=== PATIENT | female | born 1990 | race African-American/Black ===

== ENCOUNTER → 2018-03-16 | Outpatient (CLI) | payer OTHER | LOC: M OUTALCOH 07:59 | DX: F10.20 Alcohol dependence, uncomplicated (principal) | CPT/HCPCS: H0001 ==

== ENCOUNTER 2018-03-28 10:00 | Outpatient (RCR) | payer OTHER | END 2018-04-20 | LOC: M OUTALCOH 04-11 16:00 | DX: F10.10 Alcohol abuse, uncomplicated (principal) | CPT/HCPCS: 90834 ==

== ENCOUNTER 2018-04-25 16:20 | Outpatient (RCR) | payer OTHER | END 2018-05-20 | LOC: M OUTALCOH 16:20 | DX: F10.10 Alcohol abuse, uncomplicated (principal) | CPT/HCPCS: 90834 ==

== ENCOUNTER 2018-05-23 16:00 | Outpatient (RCR) | payer SELFPAY | END 2018-06-20 | LOC: M OUTALCOH 16:00 | DX: F10.10 Alcohol abuse, uncomplicated (principal) ==